=== PATIENT | male | born 1970 | race Caucasian/White ===

== ENCOUNTER 2020-12-31 07:51 | Emergency (ER) | payer BC, OTHER ==
--- NOTE | 2020-12-31 08:34 | EDM.PDOC ---
"ED HPI GENERAL MEDICAL PROBLEM - General Chief Complaint: Abdominal Pain Stated Complaint: RIGHT SIDE ABDOMINAL PAIN Time Seen by Provider: 12/31/20 08:32 Source of Information: Reports: Patient, RN, RN Notes Reviewed History Limitations: Reports: No Limitations - History of Present Illness INITIAL COMMENTS - FREE TEXT/NARRATIVE: Pt presents to ER from home by POV with c/o right upper abdominal pain which radiates back and forth to the right flank. Pt reports onset of the pain was several days ago. Initially the pain would come and go, but this morning it came on and has persisted. He went to clinic yesterday and has an US RUQ pending for this Tuesday to evaluate his gallbladder. Pt admits to nausea and vomiting from the pain, and mild dysuria. Denies fevers, chills, diarrhea, or constipation. Hx of kidney stones, but none for several years. Duration: Getting Worse, Recurring Location: Reports: Abdomen Quality: Reports: Ache Severity: Severe Improves with: Reports: None Associated Symptoms: Reports: No Other Symptoms Right Abdominal Pain Score (Numeric/FACES): 8 - Related Data Allergies Allergy/AdvReac Type Severity Reaction Status Date / Time Penicillins Allergy Blisters Verified 12/31/20 08:32 Home Meds: Home Meds Lisinopril/Hydrochlorothiazide [Lisinopril-Hctz 20-12.5 mg Tab] 1 tab PO DAILY 12/31/20 [History] Past Medical History Cardiovascular History: Reports: Hypertension Genitourinary History: Reports: Renal Calculus Social & Family History - Family History Family Medical History: No Pertinent Family History - Living Situation & Occupation Living situation: Reports: Occupation: Employed ED ROS GENERAL - Review of Systems Review Of Systems: Comprehensive ROS is negative, except as noted in HPI. ED EXAM, GI/ABD - Physical Exam Exam: See Below Exam Limited By: No Limitations General Appearance: Alert, WD/WN, No Apparent Distress, Other (Uncomfortable, but non-toxic appearing). No: Active Emesis Eyes: Bilateral: Normal Appearance (No scleral icterus) Throat/Mouth: Normal Inspection, Normal Lips, Normal Voice, No Airway Compromise Head: Atraumatic, Normocephalic Neck: Normal Inspection Respiratory/Chest: No Respiratory Distress, Lungs Clear, Normal Breath Sounds, No Accessory Muscle Use, Chest Non-Tender Cardiovascular: Regular Rate, Rhythm GI/Abdominal Exam: Normal Bowel Sounds, Soft, No Organomegaly, Tender (RUQ). No: Guarding, Rigid, Rebound Back Exam: Normal Inspection, CVA Tenderness (R). No: CVA Tenderness (L), Vertebral Tenderness Extremities: Normal Inspection Neurological: Alert, Oriented, No Motor/Sensory Deficits Psychiatric: Normal Mood Skin Exam: Warm, Dry, Intact, Normal Color, No Rash. No: Jaundice Course - Vital Signs Last Recorded V/S: Last Vital Signs Temp 96.1 F L 12/31/20 08:28 Pulse 76 12/31/20 08:28 Resp 16 12/31/20 09:03 BP 156/98 H 12/31/20 09:03 Pulse Ox 100 12/31/20 08:28 - Orders/Labs/Meds Orders: Active Orders 24 hr Category Date Time Status Peripheral IV Care [RC] . DIRECTED Care 12/31/20 08:47 Active UA RFX [place] AND CULT IF INDIC [URIN] Stat Lab 12/31/20 08:47 Ordered Sodium Chloride 0.9% [Saline Flush] Med 12/31/20 08:46 Active 10 ml FLUSH ASDIRECTED PRN Peripheral IV Insertion Adult [OM.PC] Stat Oth 12/31/20 08:47 Ordered Medication Orders Sodium Chloride (Sodium Chloride 0.9% 10 Ml Syringe) 10 ml FLUSH ASDIRECTED PRN PRN Reason: Keep Vein Open Last Admin: 12/31/20 09:13 Dose: 10 ml Documented by: ANDREW Labs: Laboratory Tests 12/31/20 12/31/20 Range/Units 09:23 09:23 WBC 8.4 (5.0-10.0) 10^3/uL RBC 4.66 (4.6-6.2) 10^6/uL Hgb 14.0 (14.0-18.0) g/dL Hct 41.9 (40.0-54.0) % MCV 89.9 (80-100) fL MCH 30.0 (27.0-34.0) pg MCHC 33.4 (33.0-35.0) g/dL Plt Count 285 (150-450) 10^3/uL Neut % (Auto) 77.3 H (42.2-75.2) % Lymph % (Auto) 13.9 L (20.5-50.1) % Floyd % (Auto) 7.4 (2-8) % Eos % (Auto) 1.2 (1.0-3.0) % Baso % (Auto) 0.2 (0.0-1.0) % Sodium 143 (136-145) mmol/L Potassium 3.5 (3.5-5.1) mmol/L Chloride 105 (98-107) mmol/L Carbon Dioxide 27 (21-32) mmol/L Anion Gap 14.5 H (7-13) mEq/L BUN 13 (7-18) mg/dL Creatinine 1.16 (0.70-1.30) mg/dL Est Cr Clr Drug Dosing 88.58 mL/min Estimated GFR (MDRD) > 60 BUN/Creatinine Ratio 11.2 (No establ ref range) Glucose 145 H (74-99) mg/dL Calcium 8.8 (8.5-10.1) mg/dL Total Bilirubin 0.5 (0.2-1.0) mg/dL AST 21 (15-37) U/L ALT 50 (16-63) U/L Alkaline Phosphatase 103 (46-116) U/L Total Protein 7.3 (6.4-8.2) g/dL Albumin 3.5 (3.4-5.0) g/dL Globulin 3.8 Albumin/Globulin Ratio 0.9 Amylase 17 L (25-115) U/L Lipase 62 L (73-393) U/L Meds: Medications Generic Name Dose Route Start Last Admin Trade Name Freq PRN Reason Stop Dose Admin Sodium Chloride 10 ml 12/31/20 08:46 12/31/20 09:13 Sodium Chloride 0.9% 10 Ml Syringe FLUSH 10 ml ASDIRECTED PRN Administration Keep Vein Open Discontinued Medications Generic Name Dose Route Start Last Admin Trade Name Freq PRN Reason Stop Dose Admin Hydromorphone HCl 1 mg 12/31/20 08:46 12/31/20 09:10 Hydromorphone 1 Mg/Ml Syringe IVPUSH 12/31/20 08:47 1 mg ONETIME ONE Administration Sodium Chloride 1,000 mls @ 999 mls/hr 12/31/20 08:46 12/31/20 09:38 Normal Saline IV 12/31/20 09:46 999 mls/hr .BOLUS ONE Administration Ondansetron HCl 4 mg 12/31/20 08:46 12/31/20 09:11 Ondansetron 4 Mg/2 Ml Sdv IV 12/31/20 08:47 4 mg ONETIME ONE Administration Tamsulosin HCl 0.4 mg 12/31/20 09:43 Tamsulosin 0.4 Mg Cap.Er PO 12/31/20 09:44 ONETIME ONE - Radiology Interpretation Free Text/Narrative:: [facility] Final Radiology Report Call: [phone] assistance Online chat: [email or web address] Name: JORGE HUMPHREY Age: 50Years M Date: 12/31/2020 SSN: -- : [id number] Study: CT ABDOMEN PELVIS WO CONT Requesting Physician: TEODORO TABARES Images: [id number] Addl Studies: Provided Clinical History: RUQ abd. and Rt flank pain Contrast: Without Contrast Medium: Contrast Amount: Contrast Method: Page 1 of 2 PROCEDURE INFORMATION: Exam: CT Abdomen And Pelvis Without Contrast Exam date and time: 12/31/2020 8:55 AM Age: 50 years old Clinical indication: Other: Ruq abd. And RT flank pain TECHNIQUE: Imaging protocol: Computed tomography of the abdomen and pelvis without contrast. Radiation optimization: All CT scans at this facility use at least one of these dose optimization techniques: automated exposure control; mA and/or kV adjustment per patient size (includes targeted exams where dose is matched to clinical indication); or iterative reconstruction. COMPARISON: CT ABDOMEN/PELVIS 03/11/2010 11:02 PM FINDINGS: Liver: Normal. No mass. Gallbladder and bile ducts: Normal. No calcified stones. No ductal dilation. Pancreas: Normal. No ductal dilation. Spleen: Normal. No splenomegaly. Adrenal glands: Normal. No mass. Kidneys and ureters: Symmetric-appearing bilateral perinephric stranding noted, nonspecific and can be seen with normal age related changes or chronic medical renal disease. Punctate calcification within the upper pole of the right kidney. Mild right hydronephrosis and hydroureter due to a 6 mm calculus at the right UVJ. No left hydronephrosis or nephrolithiasis. Stomach and bowel: Unremarkable. No obstruction. No mucosal thickening. Appendix: No evidence of appendicitis. Intraperitoneal space: Unremarkable. No free air. No significant fluid collection. Vasculature: Unremarkable. No abdominal aortic aneurysm. Lymph nodes: Unremarkable. No enlarged lymph nodes. JORGE HUMPHREY | Final Radiology Report CONFIDENTIALITY STATEMENT This report is intended only for use by the referring physician, and only in accordance with law. If you received this in error, call [phone]. Page 2 of 2 Urinary bladder: Unremarkable as visualized. Reproductive: Unremarkable as visualized. Bones/joints: Severe narrowing of the L5-S1 disc space with associated vacuum phenomena and marginal osteophytes. Multiple Schmorl's nodes Soft tissues: Unremarkable. IMPRESSION: 1. Mild right hydronephrosis and hydroureter due to a 6 mm calculus at the right UVJ. 2. Severe narrowing of the L5-S1 disc space with associated vacuum phenomena and marginal osteophytes. Thank you for allowing us to participate in the care of your patient. Dictated and Authenticated by: Joe Carter MD 12/31/2020 10:03 AM Central Time ([place] & [place]) Departure - Departure Time of Disposition: 10:30 Disposition: Home, Self-Care 01 Condition: Good Clinical Impression: Kidney stone on right side - Discharge Information *PRESCRIPTION DRUG MONITORING PROGRAM REVIEWED*: Not Applicable *COPY OF PRESCRIPTION DRUG MONITORING REPORT IN PATIENT [place]: Not Applicable Instructions: Kidney Stones, Renal Colic, [id number] Forms: ED Department Discharge Additional Instructions: Rx: Percocet (Oxycodone) 5mg/325mg Rx: Flomax 0.4mg Rx: Zofran 4mg Follow up in clinic with Dr. Hodge by January 05 for recheck and refer ral to urology if needed. Return to ER if you develop a fever, are unable to pass your urine, or have uncontrolled pain. Sepsis Event Note (ED) - Focused Exam Vital Signs: Vital Signs Temp Pulse Resp BP Pulse Ox 12/31/20 09:03 16 156/98 H 12/31/20 08:28 96.1 F L 76 16 159/101 H 100 - My Orders Last 24 Hours: My Active Orders 12/31/20 08:46 Sodium Chloride 0.9% [Saline Flush] 10 ml FLUSH ASDIRECTED PRN 12/31/20 08:47 Peripheral IV Care [RC] . DIRECTED UA RFX [place] AND CULT IF INDIC [URIN] Stat Peripheral IV Insertion Adult [OM.PC] Stat - Assessment/Plan Last 24 Hours: My Active Orders 12/31/20 08:46 Sodium Chloride 0.9% [Saline Flush] 10 ml FLUSH ASDIRECTED PRN 12/31/20 08:47 Peripheral IV Care [RC] . DIRECTED UA RFX [place] AND CULT IF INDIC [URIN] Stat Peripheral IV Insertion Adult [OM.PC] Stat"
[2020-12-31] MEDS ORDERED: Ondansetron 4 MG/2 ML SDV IV ONE (08:46)
[2020-12-31] MEDS ORDERED: HYDROmorphone 1 MG/ML Syringe IVPUSH ONE (08:46)
[2020-12-31] MEDS ORDERED: Sodium Chloride 0.9% 10 ML Syringe FLUSH PRN (08:46)
[2020-12-31] MEDS: Sodium Chloride 0.9% 1,000 ML IV ONE ×2 (09:12→09:38)
[2020-12-31] MEDS ORDERED: Tamsulosin 0.4 MG Cap.ER PO ONE (09:43)
[2020-12-31 09:49] LABS: ANION GAP 14.5 mEq/L (7-13); CHLORIDE,CL 105 mmol/L (98-107); SODIUM,NA 143 mmol/L (136-145)
--- NOTE | 2020-12-31 10:04 | CT ---
PROCEDURE INFORMATION: Exam: CT Abdomen And Pelvis Without Contrast Exam date and time: 12/31/2020 8:55 AM Age: 50 years old Clinical indication: Other: Ruq abd. And RT flank pain TECHNIQUE: Imaging protocol: Computed tomography of the abdomen and pelvis without contrast. Radiation optimization: All CT scans at this facility use at least one of these dose optimization techniques: automated exposure control; mA and/or kV adjustment per patient size (includes targeted exams where dose is matched to clinical indication); or iterative reconstruction. COMPARISON: CT ABDOMEN/PELVIS 03/11/2010 11:02 PM FINDINGS: Liver: Normal. No mass. Gallbladder and bile ducts: Normal. No calcified stones. No ductal dilation. Pancreas: Normal. No ductal dilation. Spleen: Normal. No splenomegaly. Adrenal glands: Normal. No mass. Kidneys and ureters: Symmetric-appearing bilateral perinephric stranding noted, nonspecific and can be seen with normal age related changes or chronic medical renal disease. Punctate calcification within the upper pole of the right kidney. Mild right hydronephrosis and hydroureter due to a 6 mm calculus at the right UVJ. No left hydronephrosis or nephrolithiasis. Stomach and bowel: Unremarkable. No obstruction. No mucosal thickening. Appendix: No evidence of appendicitis. Intraperitoneal space: Unremarkable. No free air. No significant fluid collection. Vasculature: Unremarkable. No abdominal aortic aneurysm. Lymph nodes: Unremarkable. No enlarged lymph nodes. Urinary bladder: Unremarkable as visualized. Reproductive: Unremarkable as visualized. Bones/joints: Severe narrowing of the L5-S1 disc space with associated vacuum phenomena and marginal osteophytes. Multiple Schmorl's nodes Soft tissues: Unremarkable. IMPRESSION: 1. Mild right hydronephrosis and hydroureter due to a 6 mm calculus at the right UVJ. 2. Severe narrowing of the L5-S1 disc space with associated vacuum phenomena and marginal osteophytes.
== END 2020-12-31 11:13 | disposition home or self-care (01) ==
LOC: DL.ED 07:51
DX: N13.2 Hydronephrosis with renal and ureteral calculous obstruction (principal); I10 Essential (primary) hypertension; Z79.899 Other long term (current) drug therapy; Z88.0 Allergy status to penicillin
CPT/HCPCS: 36415; 74176; 80053; 82150; 83690; 85025; 96374; 96375; 99284; A9270; J1170; J2405; J7030

== ENCOUNTER 2021-01-02 00:30 | Emergency (ER) | payer OTHER ==
[2021-01-02] MEDS ORDERED: Ketorolac 10 MG Tab PO ONE (00:31)
[2021-01-02] MEDS ORDERED: Ondansetron 4 MG/2 ML SDV IVPUSH ONE (00:35)
[2021-01-02] MEDS ORDERED: Sodium Chloride 0.9% 1,000 ML IV ONE (00:35)
[2021-01-02] MEDS: HYDROmorphone 1 MG/ML Syringe ONE ×2 (00:50→09:54)
[2021-01-02] MEDS: HYDROmorphone 1 MG/ML Syringe IVPUSH ONE ×2 (00:52)
[2021-01-02 01:09] LABS: ANION GAP 11.7 mEq/L (7-13)
[2021-01-02] MEDS ORDERED: Ketorolac 30 MG/ML SDV IVPUSH ONE (01:18)
[2021-01-02] MEDS ORDERED: HYDROmorphone 0.5 MG/0.5 ML Syringe IVPUSH PRN (01:46)
--- NOTE | 2021-01-02 01:48 | EDM.PDOC ---
ED HPI GENERAL MEDICAL PROBLEM - General Chief Complaint: Genitourinary Problem Stated Complaint: KIDNEY STONES Time Seen by Provider: 01/02/21 01:00 Source of Information: Reports: Patient History Limitations: Reports: No Limitations - History of Present Illness INITIAL COMMENTS - FREE TEXT/NARRATIVE: ED ambulatory with c/o severe right flank pain. Hx kidney stones.. Seen most recent on 12/31 6mm calculi UVJ per report. Pain well controlled until few hours prior. Slight nasusea no vomiting. Last oxycodone approximately one hour prior and no improvement. Rates 05/12/ Right Abdomen Pain Score (Numeric/FACES): 10 - Related Data Allergies Allergy/AdvReac Type Severity Reaction Status Date / Time Penicillins Allergy Blisters Verified 12/31/20 08:32 Home Meds: Home Meds Lisinopril/Hydrochlorothiazide [Lisinopril-Hctz 20-12.5 mg Tab] 1 tab PO DAILY 12/31/20 [History] Tamsulosin HCl [Flomax] 0.4 mg PO 01/02/21 [History] oxyCODONE HCl/Acetaminophen [Oxycodone-Acetaminophen 5-325] 1 each PO 01/02/21 [History] Past Medical History HEENT History: Reports: None Cardiovascular History: Reports: Hypertension Respiratory History: Reports: None Gastrointestinal History: Reports: None Genitourinary History: Reports: Renal Calculus Musculoskeletal History: Reports: Gout Neurological History: Reports: None Psychiatric History: Reports: None Endocrine/Metabolic History: Reports: Obesity/BMI 30+ Hematologic History: Reports: None Immunologic History: Reports: None Oncologic (Cancer) History: Reports: None Dermatologic History: Reports: None - Infectious Disease History Infectious Disease History: Reports: Chicken Pox - Past Surgical History Head Surgeries/Procedures: Reports: None GI Surgical History: Reports: Hernia Repair/Other Social & Family History - Family History Family Medical History: No Pertinent Family History - Tobacco Use Tobacco Use Status *Q: Never Tobacco User Second Hand Smoke Exposure: No - Caffeine Use Caffeine Use: Reports: None - Recreational Drug Use Recreational Drug Use: No - Living Situation & Occupation Living situation: Reports: Occupation: Employed ED ROS GENERAL - Review of Systems Review Of Systems: Comprehensive ROS is negative, except as noted in HPI. ED EXAM, RENAL/ - Physical Exam Exam: See Below Exam Limited By: No Limitations General Appearance: Moderate Distress Eye Exam: Bilateral Eye: PERRL Ears: Normal External Exam Nose: Normal Inspection Throat/Mouth: Normal Inspection, Normal Lips Neck: Normal Inspection Respiratory/Chest: No Respiratory Distress, Lungs Clear, Normal Breath Sounds Cardiovascular: Regular Rate, Rhythm GI/Abdominal: Normal Bowel Sounds, Soft Back Exam: Normal Inspection, CVA Tenderness (R) Extremities: Normal Inspection, No Pedal Edema Neurological: Alert, Oriented, Normal Cognition, Normal Gait Psychiatric: Normal Affect, Normal Mood Skin Exam: Warm, Dry, Intact, Normal Color Course - Vital Signs Last Recorded V/S: Last Vital Signs Temp 97 F 01/02/21 00:57 Pulse 94 01/02/21 00:57 Resp 22 H 01/02/21 00:57 BP 152/80 H 01/02/21 01:53 Pulse Ox 100 01/02/21 01:09 - Orders/Labs/Meds Orders: Active Orders 24 hr Category Date Time Status Bladder Scan [RC] ASDIRECTED Care 01/02/21 00:41 Active HYDROmorphone [Dilaudid] Med 01/02/21 01:46 Active 0.5 mg IVPUSH ONETIME PRN Medication Orders Hydromorphone HCl (Hydromorphone 0.5 Mg/0.5 Ml Syringe) 0.5 mg IVPUSH ONETIME PRN PRN Reason: Pain (mild 1-3) Labs: Laboratory Tests 01/02/21 01/02/21 01/02/21 Range/Units 00:40 00:40 00:40 WBC 8.8 (5.0-10.0) 10^3/uL RBC 4.86 (4.6-6.2) 10^6/uL Hgb 14.7 (14.0-18.0) g/dL Hct 44.1 (40.0-54.0) % MCV 90.7 (80-100) fL MCH 30.2 (27.0-34.0) pg MCHC 33.3 (33.0-35.0) g/dL Plt Count 300 (150-450) 10^3/uL Neut % (Auto) 59.6 (42.2-75.2) % Lymph % (Auto) 28.2 (20.5-50.1) % Putnam % (Auto) 9.7 H (2-8) % Eos % (Auto) 2.3 (1.0-3.0) % Baso % (Auto) 0.2 (0.0-1.0) % Sodium 141 (136-145) mmol/L Potassium 3.7 (3.5-5.1) mmol/L Chloride 103 (98-107) mmol/L Carbon Dioxide 30 (21-32) mmol/L Anion Gap 11.7 (7-13) mEq/L BUN 19 H (7-18) mg/dL Creatinine 1.35 H (0.70-1.30) mg/dL Est Cr Clr Drug Dosing 76.11 mL/min Estimated GFR (MDRD) 56 BUN/Creatinine Ratio 14.1 (No establ ref range) Glucose 147 H (74-99) mg/dL Lactic Acid 1.4 (0.4-2.0) mmol/L Calcium 9.1 (8.5-10.1) mg/dL Total Bilirubin 0.3 (0.2-1.0) mg/dL AST 22 (15-37) U/L ALT 49 (16-63) U/L Alkaline Phosphatase 108 (46-116) U/L Total Protein 8.1 (6.4-8.2) g/dL Albumin 3.9 (3.4-5.0) g/dL Globulin 4.2 Albumin/Globulin Ratio 0.9 Urine Color (YELLOW) Urine Appearance (CLEAR) Urine pH (5.0-9.0) Ur Specific Dickson (1.005-1.030) Urine Protein (NEGATIVE) Urine Glucose (UA) (NEGATIVE) Urine Ketones (NEGATIVE) Urine Occult Blood (NEGATIVE) Urine Nitrite (NEGATIVE) Urine Bilirubin (NEGATIVE) Urine Urobilinogen (0.2-1.0) mg/dL Ur Leukocyte Esterase (NEGATIVE) Urine RBC /HPF Urine WBC (0-5/HPF) /HPF Ur Epithelial Cells (NOT SEEN) /HPF Calcium Oxalate Crystal (NOT SEEN) /HPF Urine Bacteria (0-FEW/HPF) /HPF 01/02/21 Range/Units 02:23 WBC (5.0-10.0) 10^3/uL RBC (4.6-6.2) 10^6/uL Hgb (14.0-18.0) g/dL Hct (40.0-54.0) % MCV (80-100) fL MCH (27.0-34.0) pg MCHC (33.0-35.0) g/dL Plt Count (150-450) 10^3/uL Neut % (Auto) (42.2-75.2) % Lymph % (Auto) (20.5-50.1) % Putnam % (Auto) (2-8) % Eos % (Auto) (1.0-3.0) % Baso % (Auto) (0.0-1.0) % Sodium (136-145) mmol/L Potassium (3.5-5.1) mmol/L Chloride (98-107) mmol/L Carbon Dioxide (21-32) mmol/L Anion Gap (7-13) mEq/L BUN (7-18) mg/dL Creatinine (0.70-1.30) mg/dL Est Cr Clr Drug Dosing mL/min Estimated GFR (MDRD) BUN/Creatinine Ratio (No establ ref range) Glucose (74-99) mg/dL Lactic Acid (0.4-2.0) mmol/L Calcium (8.5-10.1) mg/dL Total Bilirubin (0.2-1.0) mg/dL AST (15-37) U/L ALT (16-63) U/L Alkaline Phosphatase (46-116) U/L Total Protein (6.4-8.2) g/dL Albumin (3.4-5.0) g/dL Globulin Albumin/Globulin Ratio Urine Color Dark yellow (YELLOW) Urine Appearance Slightly cloudy (CLEAR) Urine pH 5.0 (5.0-9.0) Ur Specific Dickson >= 1.030 (1.005-1.030) Urine Protein 100 H (NEGATIVE) Urine Glucose (UA) Negative (NEGATIVE) Urine Ketones Negative (NEGATIVE) Urine Occult Blood Large H (NEGATIVE) Urine Nitrite Negative (NEGATIVE) Urine Bilirubin Negative (NEGATIVE) Urine Urobilinogen 0.2 (0.2-1.0) mg/dL Ur Leukocyte Esterase Negative (NEGATIVE) Urine RBC 50-75 H /HPF Urine WBC 5-10 H (0-5/HPF) /HPF Ur Epithelial Cells Moderate H (NOT SEEN) /HPF Calcium Oxalate Crystal Moderate H (NOT SEEN) /HPF Urine Bacteria Many H (0-FEW/HPF) /HPF Meds: Medications Generic Name Dose Route Start Last Admin Trade Name Freq PRN Reason Stop Dose Admin Hydromorphone HCl 0.5 mg 01/02/21 01:46 Hydromorphone 0.5 Mg/0.5 Ml Syringe IVPUSH ONETIME PRN Pain (mild 1-3) Discontinued Medications Generic Name Dose Route Start Last Admin Trade Name Marcia PRN Reason Stop Dose Admin Hydromorphone HCl 1 mg 01/02/21 00:35 01/02/21 00:52 Hydromorphone 1 Mg/Ml Syringe IVPUSH 01/02/21 00:36 Not Given ONETIME ONE Hydromorphone HCl Confirm 01/02/21 00:47 01/02/21 00:50 Hydromorphone 1 Mg/Ml Syringe Administered 01/02/21 00:48 1 mg Dose Administration 1 mg .ROUTE .STK-MED ONE Sodium Chloride 1,000 mls @ 999 mls/hr 01/02/21 00:35 01/02/21 00:51 Normal Saline IV 01/02/21 01:35 999 mls/hr .BOLUS ONE Administration Ketorolac Tromethamine 30 mg 01/02/21 01:18 01/02/21 01:23 Ketorolac 30 Mg/Ml Sdv IVPUSH 01/02/21 01:19 30 mg ONETIME ONE Administration Ketorolac Tromethamine Confirm 01/02/21 02:56 01/02/21 03:02 Ketorolac 10 Mg Tab Administered 01/02/21 02:57 Not Given Dose 20 mg .ROUTE .STK-MED ONE Ondansetron HCl 4 mg 01/02/21 00:35 01/02/21 00:51 Ondansetron 4 Mg/2 Ml Sdv IVPUSH 01/02/21 00:36 4 mg ONETIME ONE Administration - Re-Assessments/Exams Free Text/Narrative Re-Assessment/Exam: 01/02/21 03:09 Pain improved No nausea. Admits not taking in much for fluid yesterday. Minimal relief from oxycodone.. Departure - Departure Time of Disposition: 02:51 Disposition: Home, Self-Care 01 Condition: Fair Clinical Impression: Kidney stone on right side - Discharge Information *PRESCRIPTION DRUG MONITORING PROGRAM REVIEWED*: No *COPY OF PRESCRIPTION DRUG MONITORING REPORT IN PATIENT [place]: No Instructions: Renal Colic, [id number], Kidney Stones, [id number] Forms: ED Department Discharge Additional Instructions: increase fluids miralax one capful in 8 ounces of liquid daily as needed ketrolac 19mg orally every 6 hours as needed for severe pain if oxycodone ineffective follow up in clinic today for urology referral urgent follow up severe uncontrolled pain , fever, vomiting continue flomax Sepsis Event Note (ED) - Evaluation Sepsis Screening Result: No Definite Risk - Focused Exam Vital Signs: Vital Signs Temp Pulse Resp BP Pulse Ox 01/02/21 01:53 152/80 H 01/02/21 01:09 100 01/02/21 00:57 97 F 94 22 H 163/109 H 96 - My Orders Last 24 Hours: My Active Orders 01/02/21 00:41 Bladder Scan [RC] ASDIRECTED 01/02/21 01:46 HYDROmorphone [Dilaudid] 0.5 mg IVPUSH ONETIME PRN - Assessment/Plan Last 24 Hours: My Active Orders 01/02/21 00:41 Bladder Scan [RC] ASDIRECTED 01/02/21 01:46 HYDROmorphone [Dilaudid] 0.5 mg IVPUSH ONETIME PRN
--- NOTE | 2021-01-02 02:03 | CT ---
PROCEDURE INFORMATION: Exam: CT Abdomen And Pelvis Without Contrast Exam date and time: 01/02/2021 1:43 AM Age: 50 years old Clinical indication: Abdominal pain; Flank; Right; Additional info: Renal stone, pain worse, cant void TECHNIQUE: Imaging protocol: Computed tomography of the abdomen and pelvis without contrast. Radiation optimization: All CT scans at this facility use at least one of these dose optimization techniques: automated exposure control; mA and/or kV adjustment per patient size (includes targeted exams where dose is matched to clinical indication); or iterative reconstruction. COMPARISON: CT Abdomen Pelvis wo Cont 12/31/2020 8:55 AM FINDINGS: Liver: Normal. No mass. Gallbladder and bile ducts: Normal. No calcified stones. No ductal dilation. Pancreas: Normal. No ductal dilation. Spleen: Normal. No splenomegaly. Adrenal glands: Normal. No mass. Kidneys and ureters: Strandy opacities are seen in the perinephric fascia bilaterally likely representing chronic scarring. However, this is more prominent on the right and inflammatory changes cannot be excluded. There is mild hydronephrosis and hydroureter present on the right. There is a 3.7 mm partially obstructing distal right ureteral calculus seen at the level of the ureterovesical junction. Stomach and bowel: Unremarkable. No obstruction. No mucosal thickening. Appendix: The appendix is visualized and is normal in configuration. Intraperitoneal space: Unremarkable. No free air. No significant fluid collection. Vasculature: Unremarkable. No abdominal aortic aneurysm. Lymph nodes: Unremarkable. No enlarged lymph nodes. Urinary bladder: The bladder appears nondistended. Reproductive: Unremarkable as visualized. Bones/joints: Unremarkable. No acute fracture. Soft tissues: Unremarkable. IMPRESSION: Partially obstructing 3.7 mm distal right ureteral calculus at the level of the ureterovesical junction.
[2021-01-02] MEDS ORDERED: Ketorolac 10 MG Tab ONE (02:56)
== END 2021-01-02 03:05 | disposition home or self-care (01) ==
LOC: DL.ED 00:30
DX: N13.2 Hydronephrosis with renal and ureteral calculous obstruction (principal); I10 Essential (primary) hypertension; E66.9 Obesity, unspecified; Z68.39 Body mass index [BMI] 39.0-39.9, adult; Z88.0 Allergy status to penicillin; Z79.899 Other long term (current) drug therapy
CPT/HCPCS: 36415; 74176; 80053; 81001; 83605; 85025; 96374; 96375; 99284; A9270; J1170; J1885; J2405; J7030

== ENCOUNTER 2024-01-10 09:17 | Emergency (ER) | payer BC, OTHER ==
[2024-01-10] MEDS: Sodium Chloride 0.9% 1,000 ML IV ONE (09:40)
[2024-01-10] MEDS: SODIUM CHLORIDE 0.9% IV ONE (09:51)
[2024-01-10] MEDS: KETAMINE IV ONE (09:51)
[2024-01-10] MEDS: hydrALAZINE 20 MG/ML SDV IVPUSH ONE (10:16)
[2024-01-10] MEDS: Dexamethasone 4 MG/ML SDV IVPUSH ONE (10:16)
[2024-01-10] MEDS: Ondansetron 4 MG/2 ML SDV IV ONE (10:18)
[2024-01-10] MEDS: Sodium Chloride 0.9% 10 ML Syringe FLUSH PRN (10:41)
[2024-01-10] MEDS: Ketamine 500 mg/10 ML MDV IV ONE (11:30)
== END 2024-01-10 12:54 ==
LOC: DL.ED 09:17
DX: M48.061 Spinal stenosis, lumbar region without neurogenic claudication (principal); M51.06 Intervertebral disc disorders with myelopathy, lumbar region; I10 Essential (primary) hypertension; E66.9 Obesity, unspecified; Z88.0 Allergy status to penicillin; Z68.37 Body mass index [BMI] 37.0-37.9, adult; Z79.899 Other long term (current) drug therapy
CPT/HCPCS: 72148; 96361; 96374; 96375; 96376; 99285; 99285-25; J0360; J1100; J2405; J3360; J3490; J7030; J7040

== ENCOUNTER 2024-01-13 19:44 | Emergency (ER) | payer BC ==
[2024-01-13] MEDS: Ondansetron 4 MG/2 ML SDV IVPUSH ONE (20:23)
[2024-01-13] MEDS: Sodium Chloride 0.9% 1,000 ML IV ONE (20:24)
[2024-01-13] MEDS: Morphine 4 MG/ML Syringe IVPUSH ONE ×2 (20:24→21:20)
[2024-01-13 20:38] LABS: BASOPHILS PERCENT AUTO 0.2 % (0.0-1.0); EOSINOPHILS PERCENT AUTO 0.5 % (1.0-3.0); HEMATOCRIT 40.4 % (40.0-54.0); LYMPHOCYTES PERCENT AUTO 15.6 % (20.5-50.1); MEAN CORPUSCULAR HEMOGLOBIN 30.4 pg (27.0-34.0); MEAN CORPUSCULAR HGB CONC 34.7 g/dL (33.0-35.0); MEAN CORPUSCULAR VOLUME 87.6 fL (80-100); MONOCYTES PERCENT AUTO 11.5 % (2-8); NEUTROPHILS PERCENT AUTO 72.2 % (42.2-75.2); PLATELET COUNT,PLT 279 10^3/uL (150-450); RED BLOOD CELL COUNT 4.61 10^6/uL (4.6-6.2); WHITE BLOOD CELL COUNT,WBC 11.5 10^3/uL (5.0-10.0)
[2024-01-13 20:50] LABS: A/G RATIO 0.9; ALBUMIN 3.4 g/dL (3.4-5.0); BUN/CREATININE RATIO 14.6 (No establ ref range); CREATININE 0.82 mg/dL (0.70-1.30); EST CRCL DRUG DOSING (CG) 124.52 mL/min; MAGNESIUM 1.7 mg/dL (1.8-2.4); PROTEIN TOTAL,TP 7.4 g/dL (6.4-8.2)
[2024-01-13 20:52] LABS: APPEARANCE,URINE CLEAR (CLEAR); BILIRUBIN,URINE NEGATIVE (NEGATIVE); COLOR,URINE YELLOW (YELLOW); GLUCOSE,URINE NEGATIVE (NEGATIVE); KETONES,URINE NEGATIVE (NEGATIVE); LEUKOCYTE ESTERASE,URINE NEGATIVE (NEGATIVE); NITRITE,URINE NEGATIVE (NEGATIVE); OCCULT BLOOD,URINE NEGATIVE (NEGATIVE); PROTEIN,URINE NEGATIVE (NEGATIVE); UROBILINOGEN,URINE 0.2 mg/dL (0.2-1.0)
[2024-01-13 20:58] LABS: LACTIC ACID 2.1 mmol/L (0.4-2.0)
[2024-01-13] MEDS: Iopamidol 612 MG/ML 100 ML Bottle IVPUSH ONE ×2 (21:01)
[2024-01-13 21:22] LABS: CORONAVIRUS COVID-19 NAA NEGATIVE (NEGATIVE); INFLUENZA A NAA NEGATIVE (NEGATIVE); INFLUENZA B NAA NEGATIVE (NEGATIVE); RESPIRATORY SYNCYTIAL VIR NAA NEGATIVE (NEGATIVE)
[2024-01-13] MEDS: HYDROmorphone 0.5 MG/0.5 ML Syringe IVPUSH ONE ×2 (21:46→23:01)
[2024-01-13 22:08] LABS: B-TYPE NATRIURETIC PEPTIDE,BNP 8 pg/ml (0-100)
== END 2024-01-13 23:32 ==
LOC: DL.ED 19:44
DX: M54.16 Radiculopathy, lumbar region (principal); K59.00 Constipation, unspecified; R50.9 Fever, unspecified; I10 Essential (primary) hypertension; E66.9 Obesity, unspecified; Z68.37 Body mass index [BMI] 37.0-37.9, adult; Z88.0 Allergy status to penicillin; Z79.899 Other long term (current) drug therapy
CPT/HCPCS: 0241U; 36415; 71045; 72132; 74177; 80053; 81003; 83605; 83735; 83880; 84145; 85025; 87040; 96361; 96374; 96375; 96376; 99285; J1170; J2270; J2405; J7030; Q9967; 99284

== ENCOUNTER 2025-03-04 06:04 | Emergency (ER) | payer BC ==
[2025-03-04] MEDS: Ketorolac 30 MG/ML SDV IVPUSH ONE (06:20)
[2025-03-04] MEDS: Ondansetron 4 MG/2 ML SDV IVPUSH ONE (06:20)
[2025-03-04] MEDS: fentaNYL 100 MCG/2 ML SDV IVPUSH ONE (06:30)
[2025-03-04] MEDS: Ketorolac 30 MG/ML SDV ONE (06:42)
[2025-03-04] MEDS: fentaNYL 100 MCG/2 ML SDV ONE (06:42)
[2025-03-04] MEDS: Ondansetron 4 MG/2 ML SDV ONE (06:42)
[2025-03-04 06:46] LABS: BASOPHILS PERCENT AUTO 0.3 % (0.0-1.0); EOSINOPHILS PERCENT AUTO 1.8 % (1.0-3.0); HEMATOCRIT 39.1 % (40.0-54.0); HEMOGLOBIN 13.4 g/dL (14.0-18.0); LYMPHOCYTES PERCENT AUTO 22.8 % (20.5-50.1); MEAN CORPUSCULAR HEMOGLOBIN 30.9 pg (27.0-34.0); MEAN CORPUSCULAR HGB CONC 34.3 g/dL (33.0-35.0); MEAN CORPUSCULAR VOLUME 90.1 fL (80-100); MONOCYTES PERCENT AUTO 9.7 % (2-8); NEUTROPHILS PERCENT AUTO 65.4 % (42.2-75.2); PLATELET COUNT,PLT 279 10^3/uL (150-450); RED BLOOD CELL COUNT 4.34 10^6/uL (4.6-6.2); WHITE BLOOD CELL COUNT,WBC 6.8 10^3/uL (5.0-10.0)
[2025-03-04 07:05] LABS: A/G RATIO 0.9; ALANINE AMINOTRANSFERASE,ALT 33 U/L (16-63); ALBUMIN 3.5 g/dL (3.4-5.0); ALKALINE PHOSPHATASE 146 U/L (46-116); ANION GAP 14.5 mEq/L (7-13); ASPARTATE AMNIOTRANSFERASE,AST 20 U/L (15-37); BILIRUBIN TOTAL 0.7 mg/dL (0.2-1.0); BLOOD UREA NITROGEN,BUN 15 mg/dL (7-18); BUN/CREATININE RATIO 11.6 (No establ ref range); CALCIUM 9.3 mg/dL (8.5-10.1); CARBON DIOXIDE,CO2 25 mmol/L (21-32); CHLORIDE,CL 105 mmol/L (98-107); CREATININE 1.29 mg/dL (0.70-1.30); ESTIMATED GFR 66 mL/min (>=60); GLUCOSE RANDOM 204 mg/dL (70-99); MAGNESIUM 1.7 mg/dL (1.8-2.4); POTASSIUM,K 3.5 mmol/L (3.5-5.1); PROTEIN TOTAL,TP 7.2 g/dL (6.4-8.2); SODIUM,NA 141 mmol/L (136-145)
[2025-03-04 10:15] LABS: APPEARANCE,URINE SLIGHTLY CLOUDY (CLEAR); BILIRUBIN,URINE SMALL (NEGATIVE); COLOR,URINE DARK YELLOW (YELLOW); GLUCOSE,URINE NEGATIVE (NEGATIVE); KETONES,URINE NEGATIVE (NEGATIVE); LEUKOCYTE ESTERASE,URINE NEGATIVE (NEGATIVE); NITRITE,URINE NEGATIVE (NEGATIVE); OCCULT BLOOD,URINE NEGATIVE (NEGATIVE); PH,URINE 5.5 (5.0-9.0); PROTEIN,URINE 100 (NEGATIVE); UROBILINOGEN,URINE 0.2 mg/dL (0.2-1.0)
[2025-03-04 11:22] LABS: BACTERIA,URINE FEW /HPF (0-FEW/HPF); EPITHELIAL CELLS,URINE FEW /HPF (NOT SEEN); HYALINE CASTS,URINE FEW; MUCUS,URINE MANY /LPF (NOT SEEN); WBC,URINE 0-5 /HPF (0-5/HPF)
== END 2025-03-04 11:09 | disposition home or self-care (01) ==
LOC: DL.ED 06:04
DX: N13.2 Hydronephrosis with renal and ureteral calculous obstruction (principal); I10 Essential (primary) hypertension; Z88.0 Allergy status to penicillin; Z79.899 Other long term (current) drug therapy
CPT/HCPCS: 36415; 74176; 80053; 81001; 83735; 85025; 96374; 96375; 99284; J1885; J2405; J3010